=== PATIENT | female | born 1960 | race Caucasian/White ===

== ENCOUNTER → 2016-08-26 | Outpatient (CLI) | payer BC ==
[~2016-08-26] MED LIST: ACET-24 PO; ASCO1CAP3 PO; ASPEC325 PO; BIOT1TAB5 PO; BUPR150T5 PO; CETI10TA84 PO; CHOL1000 PO; CLBPO15 TOP; ERYOPO TOP; EVEN500C2 PO; LEVO100T PO; LYSI500C4 PO; MELO15TA10 PO; MONOLAURIN PO; MORP-157 PO; RXC5 PO; TYLOTC500 PO; [UNRECOGNIZED DRUG - OTHER] PO
== END | disposition home or self-care (01) ==
LOC: C.LABMFLN 08:24
PROVIDERS: ATTEND Internal Medicine Endocrinology, Diabetes & Metabolism
DX: E03.9 Hypothyroidism, unspecified (principal)

== ENCOUNTER 2016-11-05 08:41 | Inpatient (IN) | payer BC ==
[2016-09-24 10:33] VITALS: BMI 44.0
--- NOTE | 2016-09-24 11:04 | PAT Medication Instructions ---
Service Date September 24, 2016. Current Home Medication List Ascorbic Acid (Vitamin C), 500 MG PO QAM Biotin (Biotin), 1,000 MCG PO QAM Cetirizine (Zyrtec), 10 MG PO QAM Cholecalciferol (Vitamin D3), 1 TAB PO QAM Clobetasol Propionate (Clobetasol Propionate), 1 APPLN TOP BID Erythromycin Opth (Erythromycin Opth), 1 DOSE TOP PRN Evening [place] Oil (Evening [place] Oil), 1,000 MG PO QAM Levothyroxine Sodium (Synthroid), 100 MCG PO QAM Lysine (L-Lysine), 500 MG PO QAM Meloxicam (Mobic), 15 MG PO QAM [Joint Mobilit], 1 TAB PO QAM [Monolaurin], 1 DOSE PO QAM Medication Instructions For Your Scheduled Surgery - Hold the following medications 2 weeks prior to surgery: Evening [place] Oil (Evening [place] Oil), 1,000 MG PO QAM Biotin (Biotin), 1,000 MCG PO QAM [Joint Mobilit], 1 TAB PO QAM [Monolaurin], 1 DOSE PO QAM Lysine (L-Lysine), 500 MG PO QAM - Hold the following medications 24 hours prior to surgery: Clobetasol Propionate (Clobetasol Propionate), 1 APPLN TOP BID Erythromycin Opth (Erythromycin Opth), 1 DOSE TOP PRN - Hold the following medications the morning of surgery: Ascorbic Acid (Vitamin C), 500 MG PO QAM Cetirizine (Zyrtec), 10 MG PO QAM Cholecalciferol (Vitamin D3), 1 TAB PO QAM Meloxicam (Mobic), 15 MG PO QAM (otherwise okay to continue per surgeon) - Take the following medications the morning of surgery with a sip of water OTHERWISE NOTHING TO EAT OR DRINK AFTER MIDNIGHT: Levothyroxine Sodium (Synthroid), 100 MCG PO QAM If you have any questions please call us at [phone] or [phone] or [phone]
--- NOTE | 2016-09-24 11:43 | DIAGNOSTIC IMAGING REPORT ---
CHEST PREADMISSION(PA/LAT) CLINICAL HISTORY: PAT preoperative evaluation COMPARISON STUDY: No previous studies for comparison. FINDINGS: The bones soft tissues and hemidiaphragms are normal. The cardiomediastinal silhouette is normal. The lungs are clear. The pulmonary vasculature is normal. IMPRESSION: Negative chest. Electronically signed by: Maurisio Marques M.D. 09/24/2016 11:42 AM Dictated Date/Time: 09/24/2016 11:42 AM
[2016-09-24 12:23] LABS: BASO % 0.7 %; BASO ABS # 0.04 K/uL (0-0.2); COMPLETE YES; EOS % 0.9 %; HEMATOCRIT 41.2 % (37-47); IG% 0.3 %; LYMPH % 29.2 %; LYMPH ABS # 1.69 K/uL (1.2-3.4); MEAN CORPUSCULAR HEMOGLOBIN 33.7 pg (25-34); MEAN PLATELET VOLUME 11.5 fL (7.4-10.4); MONO % 8.8 %; NEUT % 60.1 %; PLATELET COUNT 197 K/uL (130-400); RED BLOOD COUNT 4.04 M/uL (4.2-5.4); WHITE BLOOD COUNT 5.78 K/uL (4.8-10.8)
[2016-09-24 12:34] LABS: INR 0.9 (0.9-1.1); PROTHROMBIN TIME (PATIENT) 10.1 SECONDS (9.0-12.0)
[2016-09-24 13:29] LABS: POTASSIUM 4.8 mmol/L (3.5-5.1)
--- NOTE | 2016-10-28 23:26 | HISTORY & PHYSICAL EXAMINATION ---
DATE OF ADMISSION: 11/05/2016 CHIEF COMPLAINT: Right knee pain. HISTORY OF PRESENT ILLNESS: The patient is a 56-year-old white female who presents for surgical treatment of her right knee. She has a several-year history of right knee pain and discomfort that has gotten worse over the past 2 years particularly. She has been followed by Dr. Fitzgerald. She describes chronic diffuse pain. She has difficulty getting through the grocery store. Her leg just gets tired, fatigued and painful. She has been treated with injections which help her for about 6-8 weeks at most. She is just kind of tired of this and wants to have her knee fixed. PAST MEDICAL HISTORY: 1. Hypothyroidism. 2. Cellulitis of the left leg. 3. Obesity with a BMI of 45. PREVIOUS SURGERIES: Include pilonidal cyst excision. ALLERGIES: None. CURRENT MEDICINES: 1. Synthroid 125 mcg a day. 2. Wellbutrin once a day. 3. Zyrtec once a day. 4. Sulindac/Clinoril 200 mg p.r.n. SOCIAL HISTORY: A 56-year-old female. She is . She does not drink. One child. FAMILY HISTORY: Significant for coronary artery disease and breast cancer. REVIEW OF SYSTEMS: Significant for obesity. Denies any chest pain, no shortness of breath. No history of DVT or PE. No bleeding problems. PHYSICAL EXAMINATION: GENERAL: Reveals a pleasant middle-aged female. She looks to be in reasonably good health. HEENT: Benign. NECK: Supple. No lymphadenopathy. LUNGS: Clear to auscultation. HEART: Has a regular rate and rhythm. ABDOMEN: Soft, nontender, nondistended. EXTREMITIES: Grossly neurovascularly intact except as follows: Examination of the right knee reveals the patient walks with an antalgic gait. She has got a moderate soft tissue envelope. She has got bony hypertrophy medially. Tender over the medial joint line. Range of motion is 5 degrees short of full extension, 120 degrees of flexion. No instability. No pain with hip motion. X-RAYS: X-rays of the right knee were reviewed, the patient has advanced right knee DJD. She has got complete loss of medial joint space. She has got some lateral compartment disease as well. She has got osteophytes primarily in the medial compartment. ASSESSMENT: A 56-year-old female with advanced right knee degenerative joint disease. She has been through extensive conservative treatment and failed. She would like to have her right knee replaced. PLAN: We are going to take her to the operating room and do right total knee replacement. The risks and benefits of this procedure were explained to the patient including but not limited to DVT, PE, , infection, neurological injury, vascular injury, bleeding problem, pain, limited range of motion, stiffness, failure to relieve her symptoms, incomplete relief of symptoms, need for further surgery in the future, fracture, leg length inequality, nerve palsy, etc. The patient understands and desires to proceed. Informed consent was obtained. She has stopped her Clinoril 10 days preop. She is planning on using the [facility]. I will see her back 2 weeks postop.
[2016-11-05] VITALS (8 sets, daily range): BP systolic 119–169; BP diastolic 77–97; PULSE 56–71; TEMP 36.3–37.3; O2SAT 94–100; Ht 160 cm; Wt 114.8 kg
[~2016-11-05] VITALS: Ht 160 cm; Wt 114.8 kg
[~2016-11-05 08:41] MED LIST changes: -ACET-24 PO; +ACETAMINOPHEN 500 MG TAB PO SCH; -ASPEC325 PO; +BUPIVACAINE 0.5 % 5 MG/1 ML PF 10ML VIAL ONE; +BUPIVACAINE LIPOSOME 266 MG, BUPIVACAINE/EPINEPHRINE INJ 50 ML, SODIUM CHLORIDE 0.9% PF... INFIL SCH; +BUPIVACAINE/EPINEPHRINE 0.25% 1:200,000 30 ML VIAL ONE; +CEFAZOLIN 2000 MG/60 ML D5W 60 ML IV SCH; +DEXAMETHASONE SOD INJ 4 MG/ML VIAL ONE; +FAMOTIDINE 20 MG TAB PO SCH; +GABAPENTIN 300 MG CAP PO SCH; +LACTATED RINGER'S 1000ML 1,000 ML IV SCH; +LACTATED RINGER'S 1000ML IV SCH; +LACTATED RINGER'S 500 ML IV SCH; +METOCLOPRAMIDE HCL 10 MG TAB PO SCH; -MORP-157 PO; -RXC5 PO; +SCOPOLAMINE 1.5 MG TDSY TD SCH; +TRANEXAMIC ACID INJ 1,000 MG in SODIUM CHLORIDE 0.9% 100ML 100 ML IV SCH; -TYLOTC500 PO
--- NOTE | 2016-11-05 09:06 | History & Physical Bridge Note ---
H&P Re-Evaluation Bridge Note: I have examined the patient, reviewed the History & Physical and in the interval since the performance of the History & Physical I have noted the following changes of clinical significance: No changes noted
[2016-11-05] MEDS ORDERED: TYLOTC500 PO (09:40)
[2016-11-05] MEDS ORDERED: SODIUM CHLORIDE 0.9% PF 50 ML VIAL ONE (09:57)
[2016-11-05] MEDS ORDERED: BACITRACIN 50000 UNIT VIAL ONE (09:57)
[2016-11-05] MEDS ORDERED: BUPIVACAINE/EPINEPHRINE 0.25% 1:200,000 30 ML VIAL ONE (09:57)
[2016-11-05] MEDS ORDERED: BUPIVACAINE LIPOSOME 1/3% 266 MG/20 ML VIAL INFIL ONE (09:58)
[2016-11-05] MEDS ORDERED: FENTANYL CITRATE INJ 50 MCG/1 ML 2 ML VIAL ONE (10:04)
[2016-11-05] MEDS ORDERED: MIDAZOLAM HCL 1 MG/ML 2ML VIAL ONE (10:04)
[2016-11-05] MEDS ORDERED: KETAMINE HCL INJ 50 MG/ML 10 ML VIAL ONE (10:04)
[2016-11-05] MEDS ORDERED: ONDANSETRON INJ 2 MG/ML 2 ML VIAL IV PRN ×2 (10:30→13:00)
[2016-11-05] MEDS ORDERED: FENTANYL CITRATE INJ 50 MCG/1 ML 2 ML VIAL IV PRN (10:30)
[2016-11-05] MEDS ORDERED: PROMETHAZINE HCL INJ 6.25 MG in SODIUM CHLORIDE 0.9% 50ML 50 ML IV PRN (10:30)
[2016-11-05] MEDS ORDERED: EpHEDrine SULFATE INJ 50 MG/ML AMP IV PRN (10:30)
[2016-11-05] MEDS ORDERED: ATROPINE SULFATE 0.1 MG/ML 5ML SYR IV PRN (10:30)
[2016-11-05] MEDS ORDERED: PROPOFOL IV EMULSION 10 MG/ML 20 ML VIAL IV ONE (12:41)
[2016-11-05] MEDS ORDERED: LIDOCAINE HCL 2% 2 ML VIAL (20MG/ML) ONE (12:41)
[2016-11-05] MEDS ORDERED: SODIUM CHLORIDE 0.9% INJ 10 ML VIAL ONE (12:45)
--- NOTE | 2016-11-05 12:56 | [facility] Post Operative Brief Note ---
Immediate Operative Summary Operative Date Nov 05, 2016. Pre-Operative Diagnosis Right knee degenerative joint disease Post-Operative Diagnosis Right knee degenerative joint disease Procedure(s) Performed Right Total Knee Arthroplasty Surgeon Dr. Sewell Exterminator Helper Surgeon(s) Epifanio Quiroz PA-C Estimated Blood Loss 50ml Findings Right Knee DJD Fluids (cc crystalloids) 1700 cc Specimens A) Right knee- bone & tissue Drains None Anesthesia Spinal Complication(s) None Disposition Recovery Room / PACU
[2016-11-05] MEDS ORDERED: METOCLOPRAMIDE HCL INJ 5 MG/ML 2 ML VIAL IV PRN (13:00)
[2016-11-05] MEDS ORDERED: SILVER SULFADIAZINE 1% CR 50 GM JAR EXT PRN (13:00)
[2016-11-05] MEDS ORDERED: MAGNESIUM HYDROXIDE SUSP 30 ML UDC PO PRN (13:00)
[2016-11-05] MEDS ORDERED: ALUMINUM/MAGNESIUM/SIMETH (MAALOX MAX) 30 ML UDC PO PRN (13:00)
[2016-11-05] MEDS ORDERED: OXYCODONE HCL IR 5 MG TAB (IMMEDIATE RELEASE) PO PRN (13:00)
[2016-11-05] MEDS ORDERED: MoRPHine SULFATE 2 MG/ML CARP IV PRN (13:00)
[2016-11-05] MEDS ORDERED: BISACODYL 10 MG SUPP PR PRN (13:00)
[2016-11-05] MEDS ORDERED: DiphenhydrAMINE HCL 50 MG/ML VIAL IV PRN (13:00)
[2016-11-05] MEDS ORDERED: ERYTHROMYCIN OP OINT 5 MG/GM 3.5 GM TUBE TOP PRN (13:00)
[2016-11-05] MEDS ORDERED: ZOLPIDEM TARTRATE 5 MG TAB PO PRN (13:00)
--- NOTE | 2016-11-05 13:25 | Anesthesiology Progress Note ---
Anesthesia Post Op Note Date & Time Nov 05, 2016 at 13:25 Vital Signs Pain Intensity: 0 Vital Signs Past 12 Hours Date Time Temp Pulse Resp B/P (MAP) Pulse Ox O2 Delivery O2 Flow Rate FiO2 11/05/16 13:20 36.4 69 16 119/76 99 Oxymask 3 11/05/16 13:10 65 16 113/76 99 Oxymask 5 11/05/16 13:01 36.3 67 16 104/68 99 Oxymask 10 11/05/16 09:41 36.7 65 18 169/97 97 Room Air Notes Mental Status: alert / awake / arousable, participated in evaluation Pt Amnestic to Procedure: Yes Nausea / Vomiting: adequately controlled Pain: adequately controlled Airway Patency, RR, SpO2: stable & adequate BP & HR: stable & adequate Hydration State: stable & adequate Neuraxial Anesthesia: was administered, sensory block is resolving Anesthetic Complications: no major complications apparent
--- NOTE | 2016-11-05 13:37 | DIAGNOSTIC IMAGING REPORT ---
RIGHT KNEE 1 OR 2 VIEWS ROUTINE CLINICAL HISTORY: Degenerative arthritis. Postop study. COMPARISON: None. DISCUSSION: There are postsurgical changes of a total right knee arthroplasty and patellar resurfacing. The femoral and tibial components appear well seated. There are anterior skin dom. There is air in the soft tissues consistent with recent surgery. IMPRESSION: Postsurgical changes of a total right knee arthroplasty. Electronically signed by: Jae Boudreaux M.D. 11/05/2016 1:36 PM Dictated Date/Time: 11/05/2016 1:36 PM
[2016-11-05] MEDS: D5W AND 1/2NSS + 20MEQ KCL 1,000 ML IV SCH ×2 (14:13→21:36)
[2016-11-05] MEDS: CEFAZOLIN IV 2,000 MG in DEXTROSE 5% 50ML 50 ML IV SCH ×2 (16:16→23:45)
[2016-11-05] MEDS: CHECK SCOPOLAMINE PATCH PLACEMENT SCH ×2 (16:17→23:45)
[2016-11-05] MEDS: KETOROLAC TROMETHAMINE 30 MG/ML VIAL IV. SCH ×2 (16:17→21:37)
[2016-11-05] MEDS: FERROUS GLUCONATE 324 MG TAB PO SCH (17:40)
[2016-11-05] MEDS ORDERED: TRANEXAMIC ACID INJ 1,000 MG in SODIUM CHLORIDE 0.9% 100ML 100 ML IV SCH (20:00)
[2016-11-05] MEDS: TAPENTADOL ER 50 MG TABCR PO SCH (21:35)
[2016-11-05] MEDS: DOCUSATE SODIUM 100 MG CAP PO SCH (21:37)
[2016-11-05] MEDS: CLOBETASOL PROPIONATE 0.05% OINT 15 GM TUBE EXT SCH (21:38)
[2016-11-05] MEDS: ASPIRIN 325 MG ECTAB PO SCH (21:38)
[2016-11-05] MEDS: ACETAMINOPHEN 500 MG TAB PO SCH (21:39)
[2016-11-05] MEDS: SENNA 8.6 MG TAB PO SCH (21:39)
[2016-11-06] VITALS (7 sets, daily range): BP systolic 128–150; BP diastolic 80–90; PULSE 58–79; TEMP 36.8–37.1; O2SAT 95–97
[2016-11-06] MEDS: KETOROLAC TROMETHAMINE 30 MG/ML VIAL IV. SCH ×4 (04:05→20:54)
[2016-11-06] MEDS: D5W AND 1/2NSS + 20MEQ KCL 1,000 ML IV SCH ×2 (04:05→10:55)
[2016-11-06] MEDS: ACETAMINOPHEN 500 MG TAB PO SCH ×3 (05:17→20:54)
[2016-11-06] MEDS: LEVOTHYROXINE 100 MCG TAB PO SCH (05:17)
[2016-11-06 06:23] LABS: HEMATOCRIT 32.2 % (37-47); MEAN CELL VOLUME 99.4 fL (80-100); MEAN CORPUSCULAR HGB CONC 34.2 g/dl (32-36); MEAN PLATELET VOLUME 11.9 fL (7.4-10.4); PLATELET COUNT 160 K/uL (130-400); RED BLOOD COUNT 3.24 M/uL (4.2-5.4); WHITE BLOOD COUNT 12.16 K/uL (4.8-10.8)
[2016-11-06 07:07] LABS: BUN/CREATININE RATIO 15.7 (10-20); CALCIUM 8.1 mg/dl (8.5-10.1); CREATININE 0.91 mg/dl (0.60-1.20); POTASSIUM 3.8 mmol/L (3.5-5.1)
[2016-11-06] MEDS: CHECK SCOPOLAMINE PATCH PLACEMENT SCH ×3 (07:54→23:26)
[2016-11-06] MEDS: CLOBETASOL PROPIONATE 0.05% OINT 15 GM TUBE EXT SCH ×2 (07:56→18:34)
--- NOTE | 2016-11-06 08:34 | PROGRESS NOTE ---
DATE: 11/06/2016 SUBJECTIVE: A 56-year-old female postop day 1 from right knee replacement. She is doing quite well. The pain is controlled. Denies any chest pain or shortness of breath. Not feeling dizzy or lightheaded. OBJECTIVE: VITAL SIGNS: Temperature 37.0. Vital signs stable. PHYSICAL EXAMINATION: GENERAL: Reveals a pleasant, middle-aged female. She is sitting up in her bedside chair and looks pretty comfortable. LUNGS: Clear to auscultation. HEART: Regular rate and rhythm. ABDOMEN: Soft, nontender, nondistended. EXTREMITIES: Grossly neurovascularly intact except as follows. Examination of the right leg reveals the leg to be well-aligned. Dressing is clean, dry and intact. She can do a straight leg raise. She can dorsiflex and plantarflex her foot appropriately. She is neurologically intact. LABORATORY DATA: Hemoglobin 11.0, hematocrit 32.2. Electrolytes are stable. ASSESSMENT: A 56-year-old female postop day 1 from right knee replacement, doing well. Pain is controlled. She is neurologically intact. PLAN: 1. DVT prophylaxis include thigh-high TEDs, SCDs, and aspirin twice a day. 2. PT/OT. Weightbear as tolerated. Right total knee protocol. 3. Pain control, doing pretty well with current pain regimen. 4. Disposition: She is hoping to be discharged home with some home health once adequately recovered.
[2016-11-06] MEDS: TAPENTADOL ER 50 MG TABCR PO SCH ×2 (08:54→20:53)
[2016-11-06] MEDS: CETIRIZINE HCL 10 MG TAB PO SCH (08:54)
[2016-11-06] MEDS: CHOLECALCIFEROL 1000 INTER.UNIT TAB PO SCH (08:55)
[2016-11-06] MEDS: ASPIRIN 325 MG ECTAB PO SCH ×2 (08:55→20:53)
[2016-11-06] MEDS: DOCUSATE SODIUM 100 MG CAP PO SCH ×2 (08:55→20:53)
[2016-11-06] MEDS: MULTIVITAMIN TAB PO SCH (08:55)
[2016-11-06] MEDS: ASCORBIC ACID 500 MG TAB PO SCH (08:55)
[2016-11-06] MEDS: PANTOprazole SOD 40 MG TAB PO SCH (08:55)
[2016-11-06] MEDS: FERROUS GLUCONATE 324 MG TAB PO SCH ×3 (08:55→16:51)
[2016-11-06] MEDS ORDERED: EVENING PRIMROSE OIL PO SCH (09:00)
[2016-11-06] MEDS ORDERED: LYSINE 500 MG PO SCH (09:00)
[2016-11-06] MEDS ORDERED: MONOLAURIN PO SCH (09:00)
--- NOTE | 2016-11-06 10:29 | OPERATIVE REPORT ---
DATE OF OPERATION: 11/05/2016 PREOPERATIVE DIAGNOSIS: Right knee degenerative joint disease. POSTOPERATIVE DIAGNOSIS: Same. PROCEDURE PERFORMED: Right cemented posterior stabilized total knee arthroplasty. COMPLICATIONS: None. ESTIMATED BLOOD LOSS: 50 mL. FLUID REPLACEMENT: 1700 mL crystalloid fluid replacement. TOURNIQUET TIME: 63 minutes at 300 mmHg. ANESTHESIA: Spinal with adductor canal block. DRAINS: None. SPECIMENS: Right knee sent for pathology. OPERATIVE INDICATIONS: The patient is a 56-year-old white female who has had a fairly long history of right knee pain and discomfort gradually gotten worse over the past 2 years. She has been through extensive conservative treatment which became less successful over time. She was just kind of tired of the limitations of pain and discomfort in her knee and she elected to proceed with total knee arthroplasty. OPERATIVE FINDINGS: Operative findings revealed advanced right knee DJD. She had grade 4 [id number] disease particularly in the medial side of her knee. She had complete loss of cartilage in the medial femoral condyle and medial tibial plateau. Moderate size joint effusion. OPERATIVE IMPLANTS: Operative implants consisted of: 1. Biomet Vanguard size 67.5 posterior stabilized femoral component. 2. Biomet size 67 tibial tray. 3. A 10 mm posterior stabilized polyethylene insert. 4. A 31 x 8 all poly patella. OPERATIVE PROCEDURE: The patient taken to the operating room, identified and placed on the operating table in the supine position. All contact areas were appropriately padded. IV antibiotics were provided by the anesthesia team. A spinal anesthetic and adductor canal block had been provided in the holding area. Randolph catheter was placed in sterile fashion. Right thigh tourniquet was then placed and the right lower extremity was then prepped and draped in the usual sterile fashion. The right leg was elevated and exsanguinated with Esmarch and tourniquet was placed at 300 mmHg. An anterior approach to the right knee was then performed through a longitudinal incision centered over the patella. Sharp dissection was carried down through the subcutaneous tissues down to the level of the extensor mechanism. A medial parapatellar arthrotomy incision was made. Some subperiosteal dissection was carried out medially. The fat pad was resected from beneath the patellar tendon. The lateral patellofemoral ligament was released. The patella was everted and the knee was flexed. The osteophytes were taken off the distal femur. The ACL and PCL were then released from the distal femur and the tibia subluxated anteriorly. The external tibial alignment jig was then placed in the anterior face of the tibia and adjusted 14 mm medially. Proximal tibial cut was made to remove about 2 mm of bone from the most deficient aspect of the medial tibial plateau. Tibia was sized to a size 67. Attention was then drawn to the femur. The distal femur was entered with a sharp drill bit. Intramedullary canal was suctioned. A right 5 degree valgus cutting guide was placed. Distal femoral cutting block was pinned in place. Distal femoral cut was made to take an additional 3 mm of bone off the distal femur. The femur was then sized to a size 67.5. We did downsize this slightly. The AP cutting block was pinned parallel to the epicondylar axis, which was 4 degrees of external rotation. The anterior cut, anterior chamfer, posterior cut, posterior chamfer cuts were made. Box cutting guide was placed and adjusted slightly laterally. The box cut was made. The knee was flexed. The remnants of the medial and lateral meniscus were excised. The osteophytes were taken off the posterior aspect of the femur. Trial femoral component was placed. Tibial tray was pinned in maximum external rotation and drill and stem punch were used to create defect in proximal tibia for the tibial tray. The knee was then trialed and the 10 mm insert fit most appropriately. Attention was then drawn to the patella. The patella was cleaned of all soft tissues. Patella thickness measured 21 mm and was cut down to 13. Lug holes were drilled for the 31 patella. Lateral osteophyte was removed. Patella button was placed. Knee was taken through range of motion and the patella tracked nicely with no thumbs test. Attention was then drawn toward placement of permanent components. All trial components were removed. A bone plug was placed in the distal femur to limit blood loss. A double batch of Palacos G cement was mixed. A right size 67.5 posterior stabilized femoral component, size 67 tibial tray, a 10 mm posterior stabilized polyethylene insert, and a 31 x 8 all poly patella were then cemented in place. The knee was brought out into full extension until cement hardened. A final cement check was then performed. Pericapsular tissues were injected with 100 mL of a combination of 20 mL of Exparel, 30 mL normal saline, 50 mL of 0.25% Marcaine with epinephrine. The patient did receive 1 gram of tranexamic acid. The tourniquet was then let down for final tourniquet time of 63 minutes. Hemostasis was assured with use of electrocautery. The extensor mechanism was then closed with a combination of #1 PDS suture and #1 Vicryl suture in a [id number] fashion. Extensor mechanism was checked and found to be intact. Subcutaneous tissues were then closed with 2-0 Dexon suture in a buried interrupted fashion. Skin was closed skin dom. Leg was then cleaned and dried and a sterile dressing of Xeroform, 4 x 4, sterile cast padding and Silas bandage were applied. The patient then transferred to the recovery room in stable condition. The patient tolerated the procedure well with with no complications. All needle and sponge counts were correct at the end of the operation. I attest to the content of the Intraoperative Record and any orders documented therein. Any exceptions are noted below. ROQUED
[2016-11-06] MEDS ORDERED: ACET-24 PO (15:10)
[2016-11-06] MEDS ORDERED: RXC5 PO (15:10)
[2016-11-06] MEDS ORDERED: MORP-157 PO (15:10)
[2016-11-06] MEDS ORDERED: ASPEC325 PO (15:10)
--- NOTE | 2016-11-06 15:13 | Discharge Instructions ---
Discharge Instructions Date of Service Nov 06, 2016. Admission Reason for Admission: Right Knee Osteoarthritis, Degenerative Joint Dise Discharge Discharge Diagnosis / Problem: Right Knee Replacement Discharge Goals Goal(s): Decrease discomfort, Improve function, Increase independence, Improve disease control, Therapeutic intervention Activity Recommendations Activity Limitations: per Instructions/Follow-up section Weightbearing Status: Right weightbearing . Instructions / Follow-Up Instructions / Follow-Up ACTIVITY RECOMMENDATIONS: Physical Therapy: * You will go to physical therapy three times each week for four to six weeks after your surgery in order to regain your knee range of motion and to retrain your knee to work properly. * It is just as important to make sure you are getting your knee perfectly straight as it is to regain your knee bend. * Taking a pain pill an hour before therapy can help you have a more productive and comfortable therapy session. Home Exercise: * You were shown a series of exercises (heel props, heel slides, etc.) in the hospital. Do these exercises three to four times each day including the exercises you were shown in physical therapy. Walking: * Get up and walk several times each day. For the first four weeks, try not to stand or walk for more than one hour at a time. If you do stand or walk for more than one hour, you will not hurt anything, but your knee and leg will likely swell. * As you feel comfortable, you may change from the walker or crutches to a cane and then to independent walking. MEDICATIONS: New Medicine: * You will likely be taking one or more of these medications: 1. MS Contin - A long-acting pain medication. Take 1 tablet twice a day for the first ten days to decrease your baseline level of pain. 2. Oxycodone - A quick and shorter-acting pain medication. Take one to two tablets every four to six hours to lessen your pain. 3. Aspirin - Thins your blood to lessen the chance of forming a blood clot. * The most common side effects of pain medicine and iron are nausea and constipation. If nausea or constipation is too much of a problem or if you have any questions about your new medicines or doses, call [facility] at . We will try to help you manage these issues. VERY IMPORTANT TO READ AND REVIEW" Pain: * The immediate post-operative period after knee replacement surgery is often quite painful. * You are given a prescription for pain medicine. You should take it, as directed, when you need it, especially before physical therapy and before going to bed. Pain that interferes with sleep is very common and can last several months. * You will likely need pain medicine for the first four to six weeks. It will not stop all of the pain. The pain will lessen and as you feel better, you may change to milder pain medicine such as Tylenol. * The most common side effects of pain medicine are nausea and constipation, so don't take more than you need. SPECIAL CARE INSTRUCTIONS: TEDs/Elastic Stockings: * The white elastic stockings help limit swelling and prevent blood clots from forming in your legs. The more you wear them, the more they work. * Wear them for six weeks after knee replacement surgery and four weeks after partial knee replacement. Prevention of Infection: * Take antibiotics one hour before any dental cleaning, dental work, urological procedure, gastrointestinal procedure or any invasive surgery in order to prevent your new joint from getting infected. * You may get the antibiotics from the doctor performing the procedure or you may call our office at before and we will call in a prescription to the pharmacy of your choice. Things to Watch For: * Drainage from the incision site that occurs more than one week after your surgery. * Severely increased knee/leg pain or swelling. * Increased redness at the incision site. * Fever above 102 degrees Fahrenheit. * Unusual chest pain or shortness of breath. * Unusual pain or burning with urination. Call [facility] at with any of the above problems or if you have any questions about your medicines or recovery. FOLLOW UP VISIT: Make an appointment to see your doctor for approximately two weeks after surgery for a progress check and staple removal by calling the office at . Current Hospital Diet Patient's current hospital diet: Regular Diet Discharge Diet Recommended Diet: Regular Diet Procedures Procedures Performed: Right Total Knee Arthroplasty Pending Studies Studies pending at discharge: no Medical Emergencies . Who to Call and When: Medical Emergencies: If at any time you feel your situation is an emergency, please call [phone] immediately. . Non-Emergent Contact Non-Emergency issues call your: Surgeon . "Provider Documentation" section prepared by Sadiq Sewell. . VTE Core Measure Inpt VTE Proph given/why not?: Other Anticoagulation, T.E.D. Stockings, SCD's
[2016-11-06] MEDS: SENNA 8.6 MG TAB PO SCH (20:53)
[2016-11-07] MEDS: KETOROLAC TROMETHAMINE 30 MG/ML VIAL IV. SCH ×2 (03:12→10:34)
[2016-11-07] MEDS: ACETAMINOPHEN 500 MG TAB PO SCH (05:31)
[2016-11-07] MEDS: LEVOTHYROXINE 100 MCG TAB PO SCH (05:31)
[2016-11-07 06:07] VITALS: BP 132/86; PULSE 81; TEMP 36.9; O2SAT 97
[2016-11-07] MEDS: PANTOprazole SOD 40 MG TAB PO SCH (07:35)
[2016-11-07] MEDS: CETIRIZINE HCL 10 MG TAB PO SCH (07:35)
[2016-11-07] MEDS: ASPIRIN 325 MG ECTAB PO SCH (07:35)
[2016-11-07] MEDS: FERROUS GLUCONATE 324 MG TAB PO SCH (07:35)
[2016-11-07] MEDS: MULTIVITAMIN TAB PO SCH (07:35)
[2016-11-07] MEDS: DOCUSATE SODIUM 100 MG CAP PO SCH (07:35)
[2016-11-07] MEDS: CHOLECALCIFEROL 1000 INTER.UNIT TAB PO SCH (07:35)
[2016-11-07] MEDS: ASCORBIC ACID 500 MG TAB PO SCH (07:35)
[2016-11-07] MEDS: CLOBETASOL PROPIONATE 0.05% OINT 15 GM TUBE EXT SCH (07:36)
[2016-11-07] MEDS: TAPENTADOL ER 50 MG TABCR PO SCH (07:39)
[2016-11-07 07:40] VITALS: BP 132/86; PULSE 81; TEMP 36.9; O2SAT 97
[2016-11-07 08:25] VITALS: BP 132/86; PULSE 81; O2SAT 97
--- NOTE | 2016-11-07 12:28 | PROGRESS NOTE ---
DATE: 11/07/2016 SUBJECTIVE: A 56-year-old female postop day 2 from right knee replacement. She is doing pretty well. Pain is controlled. Therapy went reasonably well. PHYSICAL EXAMINATION: OBJECTIVE: VITAL SIGNS: Temperature is 36.9. Vital signs stable. GENERAL: Reveals a healthy, pleasant, middle-aged female. She is sitting up in bed, eating breakfast. She looks comfortable. LUNGS: Clear to auscultation. HEART: Regular rate and rhythm. ABDOMEN: Soft, nontender, nondistended. EXTREMITIES: Grossly neurovascularly intact except as follows. Examination of the right leg reveals the dressing to be clean, dry and intact. Just a trace bit of bloody drainage. She can dorsiflex and plantarflex her foot appropriately. She is neurologically intact. ASSESSMENT: A 56-year-old female postop day 2 from right knee replacement, doing pretty well. PLAN: 1. DVT prophylaxis include thigh-high TEDs, SCDs, and aspirin twice a day. 2. PT/OT. Weightbear as tolerated. Right total knee protocol. 3. Pain control, doing pretty well with current pain regimen. 4. Disposition: Plan to discharge to home with some home health once adequately recovered.
--- NOTE | 2016-11-11 18:07 | DISCHARGE SUMMARY ---
ADMITTING PHYSICIAN AND SURGEON: Dr. Sewell. ADMITTING DIAGNOSIS: Right knee degenerative joint disease. SURGERY PERFORMED: Right total knee arthroplasty. SECONDARY DIAGNOSES: Hypothyroidism, cellulitis of the left leg, obesity. CONSULTS: None obtained. HISTORY AND PHYSICAL EXAMINATION: Well documented in the patient's chart. HOSPITAL COURSE: The patient was admitted on 11/05/2016 underwent total knee arthroplasty, tolerated the procedure well. There were no complications. She was transferred to the PACU postoperatively and later to the orthopedic floor for further care. She was given Ancef for antibiotic prophylaxis, FLORIAN stockings, SCDs and aspirin for DVT prophylaxis. Hemoglobin, hematocrit and vital signs were monitored during her hospital stay and remained stable. She developed some mild postoperative anemia, did not require any blood transfusions. There were no complications. By postoperative day 2, she was tolerating a general diet, pain was controlled with oral pain medicines. She was participating in physical therapy and had no signs or symptoms of deep vein thrombosis. On postop day 2, she was discharged home and set up with home health services. She was given printed discharge instructions including new prescriptions for extra strength Tylenol, aspirin 325 mg b.i.d., MS Contin and oxycodone. Continue her home medications with the exception of her home dose of Tylenol, which was changed. Continue physical therapy, weightbearing as tolerated and FLORIAN stockings. Follow up in 10-12 days or sooner if there are any problems or concerns.
== END 2016-11-07 11:14 | disposition home health service (06) | DRG 470 ==
LOC: C.ACU 08:41 → C.3E 09:10 → ENRESERV 13:23
PROVIDERS: ADMIT Orthopaedic Surgery Sports Medicine; ATTEND Orthopaedic Surgery Sports Medicine
PROC: 0SRC0J9 Replacement of Right Knee Joint with Synthetic Substitute, Cemented, Open Approach (ICD-10-PCS; principal; 2016-11-05 10:40)
DX: M17.11 Unilateral primary osteoarthritis, right knee (principal); Z68.42 Body mass index [BMI] 45.0-49.9, adult; M25.461 Effusion, right knee; I10 Essential (primary) hypertension; E03.9 Hypothyroidism, unspecified; E66.01 Morbid (severe) obesity due to excess calories; Z79.1 Long term (current) use of non-steroidal anti-inflammatories (NSAID); Z79.899 Other long term (current) drug therapy